=== PATIENT | male | born 1985 | race Caucasian/White ===

== ENCOUNTER 2024-05-08 21:13 | Inpatient (IN) | payer OTHER ==
[2024-05-08 22:27] VITALS: BMI 23.7
[2024-05-08] MEDS ORDERED: NALOXONE (NARCAN) HCL 4 MG/0.1 ML SPRAY NS PRN (22:43)
[2024-05-08] MEDS ORDERED: NICOTINE POLACRILEX 2 MG LOZENGE BC PRN (22:43)
[2024-05-08] MEDS ORDERED: BENZOCAINE/MENTHOL (CHLORASEPTIC ) LOZENGE MM PRN (22:43)
[2024-05-08] MEDS ORDERED: IBUPROFEN 600 MG TABLET (FP) PO PRN (22:43)
[2024-05-08] MEDS ORDERED: IBUPROFEN 400 MG TABLET (FP) PO PRN (22:43)
[2024-05-08] MEDS ORDERED: MAG HYDROX/AL HYDROX/SIMETH 30 ML UNIT-DOSE CUP PO PRN (22:43)
[2024-05-08] MEDS ORDERED: guaiFENesin 600 MG TABLET.ER (FP) PO PRN (22:43)
[2024-05-08] MEDS ORDERED: MAGNESIUM HYDROX 2400MG/30ML ORAL SUSPENSION 30 ML CUP PO PRN (22:43)
[2024-05-08] MEDS ORDERED: ACETAMINOPHEN 325 MG TABLET (FP) PO PRN (22:43)
[2024-05-08] MEDS ORDERED: DICYCLOMINE HCL 10 MG CAPSULE PO PRN (22:43)
[2024-05-08] MEDS ORDERED: POLYETHYLENE GLYCOL (HEALTHYLAX) 3350 17 GM PACKET PO PRN (22:43)
[2024-05-08] MEDS ORDERED: BENZONATATE 200 MG CAPSULE PO PRN (22:43)
[2024-05-08] MEDS ORDERED: BISMUTH SUBSALICYLATE 524 MG/30 ML PO PRN (22:43)
[2024-05-08] MEDS ORDERED: NALOXONE HCL 0.4 MG/ML VIAL IM PRN (22:43)
[2024-05-08] MEDS ORDERED: NICOTINE POLACRILEX 2 MG GUM BUC PRN (22:43)
[2024-05-08] MEDS ORDERED: LOPERAMIDE HCL 2 MG CAPSULE PO PRN (22:43)
[2024-05-08] MEDS: LORazepam 2 MG/ML SDV VIAL IM ONE (23:03)
[2024-05-08] MEDS ORDERED: levETIRAcetam 500 MG TABLET (FP) PO ONE (23:21)
[2024-05-08] MEDS ORDERED: diazePAM 5 MG TABLET ONE (23:21)
[2024-05-08] MEDS ORDERED: methaDONE HCL 10 MG TABLET (FOR DETOX USE ONLY) ONE (23:21)
[2024-05-08] MEDS: methaDONE HCL 10 MG TABLET (FOR DETOX USE ONLY) PO ONE (23:27)
[2024-05-08] MEDS: levETIRAcetam 500 MG TABLET (FP) PO SCH (23:29)
[2024-05-08] MEDS: diazePAM 5 MG TABLET PO SCH (23:29)
[2024-05-09] MEDS: PRENATAL VITAMINS W/ FOLIC ACID TABLET (FP) PO SCH (10:24)
[2024-05-09] MEDS: diazePAM 5 MG TABLET PO PRN (13:58)
[2024-05-09 14:38] LABS: HEMATOCRIT 41.2 % (35.4-49); HEMOGLOBIN 13.1 GM/dL (11.7-16.9); MCHC 31.9 g/dl (32.0-35.9); MEAN CELL VOLUME 78.5 fl (80-96); MEAN PLT VOLUME 9.2 fl (7.5-11.1); PLATELET COUNT 242 10^3/uL (134-434); RBC 5.25 M/mm3 (4.00-5.60); RDW 15.2 % (11.9-15.9); WHITE BLOOD COUNT 8.2 K/mm3 (4.0-10.0)
[2024-05-09 14:49] LABS: POTASSIUM 3.5 mmol/L (3.5-5.1)
[2024-05-09 15:12] LABS: ALBUMIN 3.7 g/dl (3.4-5.0); BLOOD UREA NITROGEN 8.9 mg/dL (7-18); CALCIUM 9.5 mg/dL (8.5-10.1)
[2024-05-09 15:15] LABS: CREATININE 0.7 mg/dL (0.55-1.3)
[2024-05-09 15:16] LABS: BILIRUBIN,TOTAL 0.4 mg/dL (0.2-1)
[2024-05-09 15:17] LABS: TOT PROT 7.1 g/dl (6.4-8.2)
[2024-05-09] MEDS: ONDANSETRON *ODT* 4 MG TABLET SL PRN (22:11)
[2024-05-09] MEDS: cloNIDine HCL 0.1 MG TABLET PO PRN (22:46)
[2024-05-09] MEDS: MELATONIN 5 MG TABLETS PO SCH (22:47)
[2024-05-09] MEDS: THIAMINE 100 MG TABLET PO SCH (22:48)
[2024-05-10] MEDS: diazePAM 5 MG TABLET PO SCH (05:43)
[2024-05-10] MEDS: cloNIDine HCL 0.1 MG TABLET PO SCH (09:14)
[2024-05-10] MEDS: methaDONE HCL 10 MG TABLET PO ONE (09:14)
[2024-05-10] MEDS ORDERED: methaDONE HCL 10 MG TABLET (FOR DETOX USE ONLY) PO ONE (10:00)
[2024-05-10] MEDS ORDERED: methaDONE HCL 10 MG TABLET PO PRN (10:12)
[2024-05-10] MEDS: METHOCARBAMOL 500 MG TABLET PO PRN (14:17)
[2024-05-11] MEDS: diazePAM 5 MG TABLET PO SCH (05:46)
[2024-05-11] MEDS: methaDONE 40 MG, methaDONE 10 MG PO ONE (09:49)
[2024-05-12] MEDS: diazePAM 5 MG TABLET PO ONE (06:16)
[2024-05-12] MEDS: methaDONE 40 MG, methaDONE 20 MG PO ONE (09:27)
[2024-05-12] MEDS ORDERED: methaDONE HCL 10 MG TABLET (FOR DETOX USE ONLY) PO ONE (10:00)
[2024-05-12] MEDS: cloNIDine HCL 0.1 MG TABLET PO PRN (22:32)
[2024-05-13] MEDS: methaDONE 40 MG, methaDONE 20 MG PO ONE (09:38)
[2024-05-13] MEDS ORDERED: methaDONE 40 MG, methaDONE 30 MG PO ONE (10:00)
[2024-05-13] MEDS ORDERED: methaDONE HCL 40 MG DISPERSABLE TABLET PO ONE (10:00)
[2024-05-14] MEDS: methaDONE 40 MG, methaDONE 30 MG PO ONE (09:58)
[2024-05-14] MEDS ORDERED: methaDONE HCL 40 MG DISPERSABLE TABLET PO ONE ×2 (10:00)
[2024-05-14] MEDS ORDERED: hydrOXYzine PAMOATE 25 MG CAPSULE (FP) PO PRN (12:51)
[2024-05-14] MEDS: SUVOREXANT 10 MG TABLET PO PRN (22:22)
[2024-05-15 08:42] VITALS: RESP 18
[2024-05-15] MEDS: methaDONE HCL 40 MG DISPERSABLE TABLET PO ONE (09:07)
[2024-05-15] MEDS ORDERED: methaDONE 80 MG, methaDONE 10 MG PO ONE (10:00)
[2024-05-15 12:30] VITALS: BP 145/93; PULSE 84; TEMP 97.7
== END 2024-05-15 12:46 | disposition other institution (70) | DRG 773 ==
LOC: YASAS 21:13 → Y6N 22:58
PROVIDERS: ADMIT Allergy & Immunology; ATTEND Surgery
PROC: HZ2ZZZZ Detoxification Services for Substance Abuse Treatment (ICD-10-PCS; principal; 2024-05-08)
DX: F11.23 Opioid dependence with withdrawal (principal); F13.20 Sedative, hypnotic or anxiolytic dependence, uncomplicated; F17.290 Nicotine dependence, other tobacco product, uncomplicated; F19.282 Other psychoactive substance dependence with psychoactive substance-induced sleep disorder; F19.280 Other psychoactive substance dependence with psychoactive substance-induced anxiety disorder; Z86.69 Personal history of other diseases of the nervous system and sense organs
CPT/HCPCS: 36415; 80053; 80305; 83036; 85027; 86780; 87811; 93005; 93010; Q0162

== ENCOUNTER 2024-05-15 12:39 | Inpatient (IN) | payer OTHER ==
[2024-05-15] MEDS ORDERED: LOPERAMIDE HCL 2 MG CAPSULE PO PRN (13:23)
[2024-05-15] MEDS ORDERED: MAG HYDROX/AL HYDROX/SIMETH 30 ML UNIT-DOSE CUP PO PRN (13:23)
[2024-05-15] MEDS ORDERED: MAGNESIUM HYDROX 2400MG/30ML ORAL SUSPENSION 30 ML CUP PO PRN (13:23)
[2024-05-15] MEDS ORDERED: POLYETHYLENE GLYCOL (HEALTHYLAX) 3350 17 GM PACKET PO PRN (13:23)
[2024-05-15] MEDS ORDERED: IBUPROFEN 400 MG TABLET (FP) PO PRN (13:23)
[2024-05-15] MEDS ORDERED: NALOXONE HCL 0.4 MG/ML VIAL IVPUSH PRN (13:23)
[2024-05-15] MEDS ORDERED: BENZOCAINE/MENTHOL (CHLORASEPTIC ) LOZENGE MM PRN (13:23)
[2024-05-15] MEDS ORDERED: ACETAMINOPHEN 325 MG TABLET (FP) PO PRN (13:23)
[2024-05-15] MEDS ORDERED: guaiFENesin 600 MG TABLET.ER (FP) PO PRN (13:23)
[2024-05-15] MEDS ORDERED: NALOXONE (NARCAN) HCL 4 MG/0.1 ML SPRAY NS PRN (13:23)
[2024-05-15] MEDS ORDERED: BENZONATATE 200 MG CAPSULE PO PRN (13:23)
[2024-05-15] MEDS: GABAPENTIN 300 MG CAPSULE PO SCH (15:55)
[2024-05-15] MEDS: THIAMINE 100 MG TABLET PO SCH (21:41)
[2024-05-15] MEDS: MELATONIN 5 MG TABLETS PO SCH (21:41)
[2024-05-15] MEDS: hydrOXYzine PAMOATE 25 MG CAPSULE (FP) PO PRN (21:42)
[2024-05-16] MEDS ORDERED: methaDONE HCL 40 MG DISPERSABLE TABLET PO SCH (06:00)
[2024-05-16] MEDS: PRENATAL VITAMINS W/ FOLIC ACID TABLET (FP) PO SCH (10:25)
[2024-05-16] MEDS: methaDONE HCL 40 MG DISPERSABLE TABLET PO SCH (10:27)
[2024-05-17] MEDS: METHOCARBAMOL 500 MG TABLET PO PRN (21:55)
[2024-05-19] MEDS: methaDONE HCL 40 MG DISPERSABLE TABLET PO SCH (07:07)
[2024-05-20] MEDS: NICOTINE POLACRILEX 2 MG GUM BC PRN (10:52)
[2024-05-21] MEDS: NICOTINE 21 MG/24 HOURS TOPICAL PATCH TD SCH (10:19)
[2024-05-24] MEDS: IBUPROFEN 600 MG TABLET (FP) PO PRN (10:37)
[2024-06-05 06:53] VITALS: TEMP 97.7
[2024-06-05] MEDS: NALOXONE (NYS OPIOID OVERDOSE PROGRAM) 4 MG/0.1 ML SPRAY NS PRN (09:49)
[2024-06-05 10:38] VITALS: BP 137/93; PULSE 101; RESP 20
== END 2024-06-05 10:10 | disposition home or self-care (01) | DRG 772 ==
LOC: YASAS 12:39 → Y5N 12:42
PROVIDERS: ADMIT Psychiatry & Neurology Pain Medicine; ATTEND Psychiatry & Neurology Pain Medicine
PROC: HZ42ZZZ Group Counseling for Substance Abuse Treatment, Cognitive-Behavioral (ICD-10-PCS; principal; 2024-05-15)
DX: F11.20 Opioid dependence, uncomplicated (principal); F13.20 Sedative, hypnotic or anxiolytic dependence, uncomplicated; F17.290 Nicotine dependence, other tobacco product, uncomplicated; F19.280 Other psychoactive substance dependence with psychoactive substance-induced anxiety disorder; F19.282 Other psychoactive substance dependence with psychoactive substance-induced sleep disorder

== ENCOUNTER 2024-08-12 14:23 | Inpatient (IN) | payer OTHER ==
[2024-08-12 14:45] VITALS: BMI 23.0
[2024-08-12] MEDS ORDERED: LORazepam 2 MG/ML SDV VIAL ONE (18:06)
[2024-08-12] MEDS ORDERED: POLYETHYLENE GLYCOL (HEALTHYLAX) 3350 17 GM PACKET PO PRN (18:22)
[2024-08-12] MEDS ORDERED: guaiFENesin 600 MG TABLET.ER (FP) PO PRN (18:22)
[2024-08-12] MEDS ORDERED: MAGNESIUM HYDROX 2400MG/30ML ORAL SUSPENSION 30 ML CUP PO PRN (18:22)
[2024-08-12] MEDS ORDERED: LOPERAMIDE HCL 2 MG CAPSULE PO PRN (18:22)
[2024-08-12] MEDS ORDERED: MAG HYDROX/AL HYDROX/SIMETH 30 ML UNIT-DOSE CUP PO PRN (18:22)
[2024-08-12] MEDS ORDERED: NALOXONE (NARCAN) HCL 4 MG/0.1 ML SPRAY NS PRN (18:22)
[2024-08-12] MEDS ORDERED: BISMUTH SUBSALICYLATE 524 MG/30 ML PO PRN (18:22)
[2024-08-12] MEDS ORDERED: ACETAMINOPHEN 325 MG TABLET (FP) PO PRN (18:22)
[2024-08-12] MEDS ORDERED: BENZOCAINE/MENTHOL (CHLORASEPTIC ) LOZENGE MM PRN (18:22)
[2024-08-12] MEDS: LORazepam 2 MG/ML SDV VIAL IM ONE (18:22)
[2024-08-12] MEDS ORDERED: IBUPROFEN 600 MG TABLET (FP) PO PRN (18:22)
[2024-08-12] MEDS ORDERED: BENZONATATE 200 MG CAPSULE PO PRN (18:22)
[2024-08-12] MEDS ORDERED: IBUPROFEN 400 MG TABLET (FP) PO PRN (18:22)
[2024-08-12] MEDS ORDERED: TRIMETHOBENZAMIDE HCL 200MG/2ML INJ IM ONE (18:38)
[2024-08-12] MEDS ORDERED: levETIRAcetam 500 MG TABLET (FP) PO ONE (18:38)
[2024-08-12] MEDS: levETIRAcetam 500 MG TABLET (FP) PO ONE (18:47)
[2024-08-12] MEDS: TRIMETHOBENZAMIDE HCL 200MG/2ML INJ IM ONE (18:47)
[2024-08-12] MEDS ORDERED: NICOTINE POLACRILEX 2 MG GUM BUC PRN (19:04)
[2024-08-12] MEDS ORDERED: methaDONE HCL 10 MG TABLET PO ONE (20:00)
[2024-08-12] MEDS: METHOCARBAMOL 500 MG TABLET PO PRN (22:14)
[2024-08-12] MEDS: diazePAM 5 MG TABLET PO SCH (22:14)
[2024-08-12] MEDS: MELATONIN 5 MG TABLETS PO SCH (22:14)
[2024-08-12] MEDS: hydrOXYzine PAMOATE 25 MG CAPSULE (FP) PO PRN (22:14)
[2024-08-12] MEDS: THIAMINE 100 MG TABLET PO SCH (22:14)
[2024-08-13] MEDS: ONDANSETRON *ODT* 4 MG TABLET SL PRN (05:41)
[2024-08-13] MEDS: diazePAM 5 MG TABLET PO PRN (07:37)
[2024-08-13 08:31] LABS: HEMATOCRIT 41.8 % (35.4-49); HEMOGLOBIN 13.8 GM/dL (11.7-16.9); MCH 25.3 pg (25.7-33.7); MEAN CELL VOLUME 76.5 fl (80-96); PLATELET COUNT 338 10^3/uL (134-434); RBC 5.46 M/mm3 (4.00-5.60); RDW 14.5 % (11.9-15.9); WHITE BLOOD COUNT 12.7 K/mm3 (4.0-10.0)
[2024-08-13 08:33] LABS: CHLORIDE 104 mmol/L (98-107); POTASSIUM 3.6 mmol/L (3.5-5.1); SODIUM 141 mmol/L (136-145)
[2024-08-13 08:36] LABS: CALCIUM 9.9 mg/dL (8.5-10.1)
[2024-08-13 08:37] LABS: ALBUMIN 4.3 g/dl (3.4-5.0); ANION GAP 9 mmol/L (4-13); BLOOD UREA NITROGEN 18.9 mg/dL (7-18); CO2 28 mmol/L (21-32); GLUCOSE,RANDOM 127 mg/dL (74-106)
[2024-08-13 08:40] LABS: CREATININE 0.7 mg/dL (0.55-1.3); SGOT/AST 34 U/L (15-37); SGPT/ALT 21 U/L (13-61)
[2024-08-13 08:41] LABS: BILIRUBIN,TOTAL 0.7 mg/dL (0.2-1); TOT PROT 7.8 g/dl (6.4-8.2)
[2024-08-13 08:43] LABS: ALK PHOS 89 U/L (45-117)
[2024-08-13] MEDS: PRENATAL VITAMINS W/ FOLIC ACID TABLET (FP) PO SCH (10:34)
[2024-08-13] MEDS: NICOTINE 14 MG/24 HOURS TOPICAL PATCH TD SCH (10:34)
[2024-08-13] MEDS: levETIRAcetam 500 MG TABLET (FP) PO SCH (10:35)
[2024-08-13] MEDS: methaDONE HCL 10 MG TABLET PO ONE (11:05)
[2024-08-13] MEDS: cloNIDine HCL 0.1 MG TABLET PO SCH (13:07)
[2024-08-13] MEDS: LORazepam 2 MG/ML SDV VIAL IM ONE (17:14)
[2024-08-13] MEDS: GABAPENTIN 300 MG CAPSULE PO ONE (17:15)
[2024-08-13] MEDS: methaDONE HCL 10 MG TABLET PO PRN (17:51)
[2024-08-13] MEDS: GABAPENTIN 300 MG CAPSULE PO SCH (21:35)
[2024-08-14] MEDS: diazePAM 5 MG TABLET PO SCH (05:40)
[2024-08-14] MEDS: methaDONE 40 MG, methaDONE 10 MG PO ONE (09:40)
[2024-08-15] MEDS: diazePAM 5 MG TABLET PO SCH (05:40)
[2024-08-15] MEDS: methaDONE 40 MG, methaDONE 20 MG PO ONE (09:54)
[2024-08-15] MEDS: DICYCLOMINE HCL 10 MG CAPSULE PO PRN (09:57)
[2024-08-15 10:35] LABS: BASO % 0.7 % (0-2.0); EOS % 0.8 % (0-4.5); HEMATOCRIT 43.3 % (35.4-49); HEMOGLOBIN 13.8 GM/dL (11.7-16.9); LYMPH % 21.6 % (8-40); MCHC 31.8 g/dl (32.0-35.9); MEAN CELL VOLUME 78.4 fl (80-96); MONO % 9.1 % (3.8-10.2); NEUT % 67.8 % (42.8-82.8); PLATELET COUNT 275 10^3/uL (134-434); RBC 5.52 M/mm3 (4.00-5.60); RDW 14.6 % (11.9-15.9); WHITE BLOOD COUNT 8.3 K/mm3 (4.0-10.0)
[2024-08-15] MEDS: cloNIDine HCL 0.1 MG TABLET PO PRN (21:47)
[2024-08-16] MEDS: diazePAM 5 MG TABLET PO ONE (05:22)
[2024-08-16] MEDS: methaDONE 40 MG, methaDONE 30 MG PO ONE (09:43)
[2024-08-16] MEDS: cloNIDine HCL 0.1 MG TABLET PO ONE (19:53)
[2024-08-17] MEDS: methaDONE HCL 40 MG DISPERSABLE TABLET PO ONE (09:11)
[2024-08-18] MEDS: methaDONE 80 MG, methaDONE 10 MG PO ONE (09:45)
[2024-08-18] MEDS: NALOXONE (NYS OPIOID OVERDOSE PROGRAM) 4 MG/0.1 ML SPRAY NS SCH (09:58)
[2024-08-18 10:00] VITALS: BP 137/86; PULSE 77; RESP 16; TEMP 98.9
[2024-08-19] MEDS ORDERED: methaDONE 80 MG, methaDONE 10 MG PO SCH (06:00)
[2024-08-19] MEDS ORDERED: methaDONE HCL 10 MG TABLET PO SCH (06:00)
== END 2024-08-18 12:32 | disposition other institution (70) | DRG 773 ==
LOC: YASAS 14:23 → Y3N 18:14
PROVIDERS: ADMIT Allergy & Immunology; ATTEND Surgery
PROC: HZ2ZZZZ Detoxification Services for Substance Abuse Treatment (ICD-10-PCS; principal; 2024-08-12)
DX: F13.230 Sedative, hypnotic or anxiolytic dependence with withdrawal, uncomplicated (principal); F11.20 Opioid dependence, uncomplicated; F19.24 Other psychoactive substance dependence with psychoactive substance-induced mood disorder; F41.9 Anxiety disorder, unspecified; G47.00 Insomnia, unspecified; R56.9 Unspecified convulsions
CPT/HCPCS: 36415; 80053; 80305; 80307; 82962; 85025; 85027; 86780; 87811; 93005; 93010; Q0162

== ENCOUNTER 2024-10-19 08:57 | Inpatient (IN) | payer OTHER ==
[2024-10-19 09:18] VITALS: BMI 23.3
[2024-10-19] MEDS ORDERED: chlordiazePOXIDE HCL 25 MG CAPSULE PO PRN (09:29)
[2024-10-19] MEDS ORDERED: NICOTINE POLACRILEX 2 MG LOZENGE BC PRN (09:35)
[2024-10-19] MEDS ORDERED: NALOXONE (NARCAN) HCL 4 MG/0.1 ML SPRAY NS PRN (09:35)
[2024-10-19] MEDS ORDERED: ACETAMINOPHEN 325 MG TABLET (FP) PO PRN (09:35)
[2024-10-19] MEDS ORDERED: BENZOCAINE/MENTHOL (CHLORASEPTIC ) LOZENGE MM PRN (09:35)
[2024-10-19] MEDS ORDERED: guaiFENesin 600 MG TABLET.ER (FP) PO PRN (09:35)
[2024-10-19] MEDS ORDERED: IBUPROFEN 600 MG TABLET (FP) PO PRN (09:35)
[2024-10-19] MEDS ORDERED: DICYCLOMINE HCL 10 MG CAPSULE PO PRN (09:35)
[2024-10-19] MEDS ORDERED: IBUPROFEN 400 MG TABLET (FP) PO PRN (09:35)
[2024-10-19] MEDS ORDERED: LOPERAMIDE HCL 2 MG CAPSULE PO PRN (09:35)
[2024-10-19] MEDS ORDERED: BISMUTH SUBSALICYLATE 262 MG/15 ML BTL PO PRN (09:35)
[2024-10-19] MEDS ORDERED: ONDANSETRON *ODT* 4 MG TABLET SL PRN (09:35)
[2024-10-19] MEDS ORDERED: BENZONATATE 200 MG CAPSULE PO PRN (09:35)
[2024-10-19] MEDS ORDERED: MAGNESIUM HYDROX 2400MG/30ML ORAL SUSPENSION 30 ML CUP PO PRN (09:35)
[2024-10-19] MEDS ORDERED: POLYETHYLENE GLYCOL (HEALTHYLAX) 3350 17 GM PACKET PO PRN (09:35)
[2024-10-19] MEDS ORDERED: MAG HYDROX/AL HYDROX/SIMETH 30 ML UNIT-DOSE CUP PO PRN (09:35)
[2024-10-19] MEDS ORDERED: TRIMETHOBENZAMIDE HCL 200MG/2ML INJ IM ONE (09:56)
[2024-10-19] MEDS ORDERED: LORazepam 2 MG/ML SDV VIAL ONE (09:56)
[2024-10-19] MEDS: LORazepam 2 MG/ML SDV VIAL IM ONE (10:04)
[2024-10-19] MEDS: TRIMETHOBENZAMIDE HCL 200MG/2ML INJ IM ONE (10:05)
[2024-10-19] MEDS ORDERED: levETIRAcetam 500 MG TABLET (FP) PO ONE (10:53)
[2024-10-19] MEDS ORDERED: chlordiazePOXIDE HCL 25 MG CAPSULE ONE (10:53)
[2024-10-19] MEDS ORDERED: PRENATAL VITAMINS W/ FOLIC ACID TABLET (FP) PO ONE (10:54)
[2024-10-19] MEDS: levETIRAcetam 500 MG TABLET (FP) PO SCH (10:54)
[2024-10-19] MEDS: chlordiazePOXIDE HCL 25 MG CAPSULE PO SCH (10:55)
[2024-10-19] MEDS: PRENATAL VITAMINS W/ FOLIC ACID TABLET (FP) PO SCH (10:55)
[2024-10-19] MEDS: methaDONE HCL 10 MG TABLET PO ONE (11:52)
[2024-10-19] MEDS: MELATONIN 5 MG TABLETS PO SCH (22:23)
[2024-10-19] MEDS: THIAMINE 100 MG TABLET PO SCH (22:23)
[2024-10-19] MEDS: cloNIDine HCL 0.1 MG TABLET PO PRN (22:24)
[2024-10-20] MEDS: METHOCARBAMOL 500 MG TABLET PO PRN (01:08)
[2024-10-20] MEDS ORDERED: methaDONE HCL 40 MG DISPERSABLE TABLET PO ONE (10:00)
[2024-10-20 10:10] LABS: POTASSIUM 3.9 mmol/L (3.5-5.1)
[2024-10-20 10:15] LABS: HEMATOCRIT 42.1 % (35.4-49); HEMOGLOBIN 14.1 GM/dL (11.7-16.9); MCHC 33.6 g/dl (32.0-35.9); MEAN CELL VOLUME 77.4 fl (80-96); MEAN PLT VOLUME 7.9 fl (7.5-11.1); PLATELET COUNT 331 10^3/uL (134-434); RBC 5.43 M/mm3 (4.00-5.60); RDW 14.4 % (11.9-15.9)
[2024-10-20 10:19] LABS: BILIRUBIN,TOTAL 0.5 mg/dL (0.2-1); TOT PROT 7.8 g/dl (6.4-8.2)
[2024-10-20 10:57] LABS: CALCIUM 9.7 mg/dL (8.5-10.1)
[2024-10-20 10:58] LABS: ALBUMIN 4.2 g/dl (3.4-5.0); BLOOD UREA NITROGEN 17.2 mg/dL (7-18)
[2024-10-20 11:03] LABS: CREATININE 0.7 mg/dL (0.55-1.3)
[2024-10-20] MEDS: QUEtiapine FUMARATE 50 MG TABLET PO SCH (22:11)
[2024-10-21] MEDS: chlordiazePOXIDE HCL 25 MG CAPSULE PO SCH (05:55)
[2024-10-21] MEDS: methaDONE HCL 40 MG DISPERSABLE TABLET PO ONE (09:52)
[2024-10-21 09:59] LABS: BASO % 0.6 % (0-2.0); HEMATOCRIT 42.5 % (35.4-49); HEMOGLOBIN 13.6 GM/dL (11.7-16.9); LYMPH % 36.5 % (8-40); MCH 25.5 pg (25.7-33.7); MCHC 31.9 g/dl (32.0-35.9); MEAN CELL VOLUME 80.1 fl (80-96); MEAN PLT VOLUME 7.9 fl (7.5-11.1); MONO % 6.3 % (3.8-10.2); NEUT % 55.6 % (42.8-82.8); PLATELET COUNT 311 10^3/uL (134-434); RBC 5.31 M/mm3 (4.00-5.60); RDW 14.7 % (11.9-15.9)
[2024-10-21] MEDS: GABAPENTIN 100 MG CAPSULE PO SCH (13:28)
[2024-10-21] MEDS: NICOTINE POLACRILEX 2 MG GUM BUC PRN (13:28)
[2024-10-21] MEDS ORDERED: GABAPENTIN 300 MG CAPSULE PO SCH (14:00)
[2024-10-21] MEDS ORDERED: levETIRAcetam 250 MG TABLET PO ONE (22:04)
[2024-10-22] MEDS ORDERED: chlordiazePOXIDE HCL 10 MG CAPSULE PO PRN
[2024-10-22] MEDS: chlordiazePOXIDE HCL 10 MG CAPSULE PO SCH (06:00)
[2024-10-22] MEDS ORDERED: levETIRAcetam 250 MG TABLET PO ONE (09:27)
[2024-10-22] MEDS ORDERED: methaDONE HCL 40 MG DISPERSABLE TABLET PO ONE (10:00)
[2024-10-23] MEDS: chlordiazePOXIDE HCL 10 MG CAPSULE PO SCH (05:47)
[2024-10-23] MEDS: methaDONE 40 MG, methaDONE 10 MG PO ONE (09:07)
[2024-10-23] MEDS ORDERED: methaDONE HCL 40 MG DISPERSABLE TABLET PO ONE (10:00)
[2024-10-23 21:22] VITALS: RESP 16
[2024-10-24] MEDS: chlordiazePOXIDE HCL 10 MG CAPSULE PO ONE (05:58)
[2024-10-24 09:04] VITALS: BP 134/94; PULSE 86; TEMP 97.7
[2024-10-24] MEDS ORDERED: methaDONE HCL 40 MG DISPERSABLE TABLET PO ONE (10:00)
== END 2024-10-24 12:05 | disposition other institution (70) | DRG 773 ==
LOC: YASAS 08:57 → Y6N 11:09
PROVIDERS: ADMIT Allergy & Immunology; ATTEND Family Medicine Addiction Medicine
PROC: HZ2ZZZZ Detoxification Services for Substance Abuse Treatment (ICD-10-PCS; principal; 2024-10-19)
DX: F10.230 Alcohol dependence with withdrawal, uncomplicated (principal); F13.230 Sedative, hypnotic or anxiolytic dependence with withdrawal, uncomplicated; F11.20 Opioid dependence, uncomplicated; F17.210 Nicotine dependence, cigarettes, uncomplicated; F43.10 Post-traumatic stress disorder, unspecified
CPT/HCPCS: 36415; 80053; 80305; 80307; 85025; 85027; 86780; 87811; 93005; 93010

== ENCOUNTER 2024-10-24 12:00 | Inpatient (IN) | payer OTHER ==
[2024-10-24] MEDS ORDERED: guaiFENesin 600 MG TABLET.ER (FP) PO PRN (15:45)
[2024-10-24] MEDS ORDERED: METHOCARBAMOL 500 MG TABLET PO PRN (15:45)
[2024-10-24] MEDS ORDERED: BENZOCAINE/MENTHOL (CHLORASEPTIC ) LOZENGE MM PRN (15:45)
[2024-10-24] MEDS ORDERED: NICOTINE POLACRILEX 4 MG GUM BUC PRN (15:45)
[2024-10-24] MEDS ORDERED: NICOTINE POLACRILEX 4 MG LOZENGE BC PRN (15:45)
[2024-10-24] MEDS ORDERED: MAGNESIUM HYDROX 2400MG/30ML ORAL SUSPENSION 30 ML CUP PO PRN (15:45)
[2024-10-24] MEDS ORDERED: POLYETHYLENE GLYCOL (HEALTHYLAX) 3350 17 GM PACKET PO PRN (15:45)
[2024-10-24] MEDS ORDERED: BENZONATATE 200 MG CAPSULE PO PRN (15:45)
[2024-10-24] MEDS ORDERED: IBUPROFEN 600 MG TABLET (FP) PO PRN (15:45)
[2024-10-24] MEDS ORDERED: IBUPROFEN 400 MG TABLET (FP) PO PRN (15:45)
[2024-10-24] MEDS ORDERED: LOPERAMIDE HCL 2 MG CAPSULE PO PRN (15:45)
[2024-10-24] MEDS ORDERED: NALOXONE (NARCAN) HCL 4 MG/0.1 ML SPRAY NS PRN (15:45)
[2024-10-24] MEDS ORDERED: NALOXONE HCL 0.4 MG/ML VIAL IVPUSH PRN (15:45)
[2024-10-24] MEDS ORDERED: MAG HYDROX/AL HYDROX/SIMETH 30 ML UNIT-DOSE CUP PO PRN (15:45)
[2024-10-24] MEDS: THIAMINE 100 MG TABLET PO SCH (21:26)
[2024-10-24] MEDS: hydrOXYzine PAMOATE 25 MG CAPSULE (FP) PO PRN (21:28)
[2024-10-24] MEDS: GABAPENTIN 100 MG CAPSULE PO SCH (21:28)
[2024-10-24] MEDS: levETIRAcetam 500 MG TABLET (FP) PO SCH (21:28)
[2024-10-24] MEDS: QUEtiapine FUMARATE 50 MG TABLET PO SCH (21:28)
[2024-10-24] MEDS: MELATONIN 5 MG TABLETS PO SCH (21:28)
[2024-10-25] MEDS ORDERED: methaDONE HCL 10 MG TABLET PO SCH (08:30)
[2024-10-25] MEDS: PRENATAL VITAMINS W/ FOLIC ACID TABLET (FP) PO SCH (09:57)
[2024-10-25] MEDS: NICOTINE 14 MG/24 HOURS TOPICAL PATCH TD SCH (09:57)
[2024-10-28] MEDS ORDERED: QUEtiapine FUMARATE 25 MG TABLET ONE (18:49)
[2024-10-30] MEDS: DOCUSATE SODIUM 100 MG CAPSULE (FP) PO SCH (12:23)
[2024-10-30] MEDS: GABAPENTIN 300 MG CAPSULE PO SCH (13:10)
[2024-10-30] MEDS: MELATONIN 5 MG TABLETS PO SCH (21:53)
[2024-10-31] MEDS ORDERED: methaDONE HCL 40 MG DISPERSABLE TABLET PO SCH (06:00)
[2024-10-31] MEDS: methaDONE 40 MG, methaDONE 30 MG PO SCH (06:09)
[2024-10-31] MEDS: SELENIUM SULFIDE 2.25% 180 ML SHAMPOO TP SCH (14:30)
[2024-11-03] MEDS: methaDONE HCL 40 MG DISPERSABLE TABLET PO SCH (06:19)
[2024-11-05] MEDS: methaDONE 80 MG, methaDONE 10 MG PO SCH (06:22)
[2024-11-06] MEDS ORDERED: CALMINE 3% AND PRAMOXINE 1% 118 ML BOTTLE TP PRN (17:04)
[2024-11-08] MEDS: SELENIUM SULFIDE 2.25% 180 ML SHAMPOO TP SCH (15:40)
[2024-11-09] MEDS: CALAMINE 8% TOPICAL LOTION 177 ML BOTTLE TP PRN (13:32)
[2024-11-12] MEDS ORDERED: methaDONE HCL 10 MG TABLET PO SCH (06:00)
[2024-11-12] MEDS ORDERED: methaDONE 80 MG, methaDONE 10 MG PO SCH (06:00)
[2024-11-13] MEDS: ACETAMINOPHEN 325 MG TABLET (FP) PO PRN (09:55)
[2024-11-15] MEDS ORDERED: levETIRAcetam 250 MG TABLET PO ONE (09:24)
[2024-11-18 06:36] VITALS: PULSE 73; RESP 16
[2024-11-19 07:37] VITALS: BP 127/86; TEMP 97.7
== END 2024-11-19 09:42 | disposition home or self-care (01) | DRG 772 ==
LOC: YASAS 12:00 → Y3E 12:02 → Y3NR 11-13 19:00 → Y3E 11-13 19:01
PROVIDERS: ADMIT Psychiatry & Neurology Pain Medicine; ATTEND Psychiatry & Neurology Pain Medicine
PROC: HZ42ZZZ Group Counseling for Substance Abuse Treatment, Cognitive-Behavioral (ICD-10-PCS; principal; 2024-10-24)
DX: F11.20 Opioid dependence, uncomplicated (principal); F13.20 Sedative, hypnotic or anxiolytic dependence, uncomplicated; F17.210 Nicotine dependence, cigarettes, uncomplicated; F19.282 Other psychoactive substance dependence with psychoactive substance-induced sleep disorder; F19.24 Other psychoactive substance dependence with psychoactive substance-induced mood disorder; G47.00 Insomnia, unspecified; K59.00 Constipation, unspecified; L85.3 Xerosis cutis; L21.0 Seborrhea capitis; Z86.69 Personal history of other diseases of the nervous system and sense organs

== ENCOUNTER 2024-12-14 17:12 | Inpatient (IN) | payer OTHER ==
[2024-12-14] MEDS ORDERED: LORazepam 2 MG/ML SDV VIAL ONE (17:18)
[2024-12-14] MEDS ORDERED: levETIRAcetam 500 MG TABLET (FP) PO ONE (17:19)
[2024-12-14] MEDS: LORazepam 2 MG/ML SDV VIAL IM ONE (17:24)
[2024-12-14] MEDS: levETIRAcetam 500 MG TABLET (FP) PO ONE (17:24)
[2024-12-14 17:30] VITALS: BMI 24.4
[2024-12-14] MEDS ORDERED: NALOXONE (NARCAN) HCL 4 MG/0.1 ML SPRAY NS PRN (18:11)
[2024-12-14] MEDS ORDERED: MAGNESIUM HYDROX 2400MG/30ML ORAL SUSPENSION 30 ML CUP PO PRN (18:11)
[2024-12-14] MEDS ORDERED: guaiFENesin 600 MG TABLET.ER (FP) PO PRN (18:11)
[2024-12-14] MEDS ORDERED: ONDANSETRON *ODT* 4 MG TABLET SL PRN (18:11)
[2024-12-14] MEDS ORDERED: MAG HYDROX/AL HYDROX/SIMETH 30 ML UNIT-DOSE CUP PO PRN (18:11)
[2024-12-14] MEDS ORDERED: POLYETHYLENE GLYCOL (HEALTHYLAX) 3350 17 GM PACKET PO PRN (18:11)
[2024-12-14] MEDS ORDERED: ACETAMINOPHEN 325 MG TABLET (FP) PO PRN (18:11)
[2024-12-14] MEDS ORDERED: IBUPROFEN 600 MG TABLET (FP) PO PRN (18:11)
[2024-12-14] MEDS ORDERED: IBUPROFEN 400 MG TABLET (FP) PO PRN (18:11)
[2024-12-14] MEDS ORDERED: BISMUTH SUBSALICYLATE 524 MG/30 ML PO PRN (18:11)
[2024-12-14] MEDS ORDERED: DICYCLOMINE HCL 10 MG CAPSULE PO PRN (18:11)
[2024-12-14] MEDS ORDERED: BENZOCAINE/MENTHOL (CHLORASEPTIC ) LOZENGE MM PRN (18:11)
[2024-12-14] MEDS ORDERED: BENZONATATE 200 MG CAPSULE PO PRN (18:11)
[2024-12-14] MEDS ORDERED: hydrOXYzine PAMOATE 25 MG CAPSULE (FP) PO PRN (18:11)
[2024-12-14] MEDS: methaDONE HCL 10 MG TABLET PO ONE (19:19)
[2024-12-14] MEDS: MELATONIN 5 MG TABLETS PO SCH (22:14)
[2024-12-14] MEDS: METHOCARBAMOL 500 MG TABLET PO PRN (22:15)
[2024-12-14] MEDS: THIAMINE 100 MG TABLET PO SCH (22:16)
[2024-12-14] MEDS: diazePAM 5 MG TABLET PO SCH (22:54)
[2024-12-15] MEDS: LOPERAMIDE HCL 2 MG CAPSULE PO PRN (03:53)
[2024-12-15] MEDS: methaDONE HCL 10 MG TABLET PO ONE (10:00)
[2024-12-15] MEDS: methaDONE 40 MG, methaDONE 10 MG PO ONE ×2 (10:00→11:25)
[2024-12-15] MEDS: PRENATAL VITAMINS W/ FOLIC ACID TABLET (FP) PO SCH (10:02)
[2024-12-15] MEDS: levETIRAcetam 500 MG TABLET (FP) PO SCH (10:02)
[2024-12-15 10:44] LABS: CHLORIDE 105 mmol/L (98-107); POTASSIUM 4.3 mmol/L (3.5-5.1); SODIUM 140 mmol/L (136-145)
[2024-12-15] MEDS: cloNIDine HCL 0.1 MG TABLET PO SCH (10:50)
[2024-12-15 10:52] LABS: HEMATOCRIT 42.5 % (40.1-51.0); HEMOGLOBIN 13.2 g/dL (13.7-17.5); MCHC 31.1 g/dl (32.3-36.5); MEAN CELL VOLUME 80.5 fl (79.0-92.2); PLATELET COUNT 402 x10^3/uL (163-337); RDW 13.5 % (12.0-15.6)
[2024-12-15 10:55] LABS: CALCIUM 9.8 mg/dL (8.5-10.1)
[2024-12-15 10:56] LABS: ALBUMIN 3.7 g/dl (3.4-5.0); ANION GAP 8 mmol/L (4-13); BLOOD UREA NITROGEN 12.3 mg/dL (7-18); CO2 27 mmol/L (21-32); GLUCOSE,RANDOM 92 mg/dL (74-106)
[2024-12-15 10:59] LABS: CREATININE 0.7 mg/dL (0.55-1.3); SGOT/AST 22 U/L (15-37); SGPT/ALT 20 U/L (13-61)
[2024-12-15 11:00] LABS: BILIRUBIN,TOTAL 0.4 mg/dL (0.2-1)
[2024-12-15 11:01] LABS: TOT PROT 7.1 g/dl (6.4-8.2)
[2024-12-15 11:02] LABS: ALK PHOS 83 U/L (45-117)
[2024-12-15] MEDS ORDERED: methaDONE HCL 10 MG TABLET PO ONE (11:03)
[2024-12-15] MEDS ORDERED: methaDONE HCL 10 MG TABLET PO PRN (11:30)
[2024-12-15] MEDS: diazePAM 5 MG TABLET PO PRN (13:26)
[2024-12-15] MEDS: QUEtiapine FUMARATE 100 MG TABLET (FP) PO SCH (22:08)
[2024-12-16] MEDS: diazePAM 5 MG TABLET PO SCH (05:44)
[2024-12-16] MEDS: methaDONE 40 MG, methaDONE 20 MG PO ONE (09:29)
[2024-12-16] MEDS ORDERED: methaDONE 40 MG, methaDONE 10 MG PO ONE (10:00)
[2024-12-17] MEDS ORDERED: cloNIDine HCL 0.1 MG TABLET PO PRN
[2024-12-17] MEDS: diazePAM 5 MG TABLET PO SCH (05:49)
[2024-12-17] MEDS: methaDONE 40 MG, methaDONE 30 MG PO ONE (09:22)
[2024-12-17] MEDS ORDERED: methaDONE 40 MG, methaDONE 20 MG PO ONE (10:00)
[2024-12-17] MEDS: GABAPENTIN 300 MG CAPSULE PO SCH (14:53)
[2024-12-17] MEDS: DOCUSATE SODIUM 100 MG CAPSULE (FP) PO SCH (22:22)
[2024-12-18] MEDS: diazePAM 5 MG TABLET PO ONE (05:44)
[2024-12-18 09:23] VITALS: BP 123/92; PULSE 85; RESP 16; TEMP 98.9
[2024-12-18] MEDS: methaDONE HCL 40 MG DISPERSABLE TABLET PO ONE (09:35)
[2024-12-18] MEDS ORDERED: methaDONE 40 MG, methaDONE 30 MG PO ONE (10:00)
[2024-12-19] MEDS ORDERED: methaDONE HCL 40 MG DISPERSABLE TABLET PO ONE ×3 (10:00→10:10)
[2024-12-19] MEDS ORDERED: methaDONE 80 MG, methaDONE 10 MG PO ONE ×2 (10:10)
[2024-12-20] MEDS ORDERED: methaDONE 80 MG, methaDONE 10 MG PO ONE (10:00)
== END 2024-12-18 12:32 | disposition other institution (70) | DRG 773 ==
LOC: YASAS 17:12 → Y6N 18:29
PROVIDERS: ADMIT Allergy & Immunology; ATTEND Allergy & Immunology
PROC: HZ2ZZZZ Detoxification Services for Substance Abuse Treatment (ICD-10-PCS; principal; 2024-12-14)
DX: F11.23 Opioid dependence with withdrawal (principal); F13.20 Sedative, hypnotic or anxiolytic dependence, uncomplicated; F17.210 Nicotine dependence, cigarettes, uncomplicated; F19.280 Other psychoactive substance dependence with psychoactive substance-induced anxiety disorder; F19.282 Other psychoactive substance dependence with psychoactive substance-induced sleep disorder; F43.10 Post-traumatic stress disorder, unspecified; G47.00 Insomnia, unspecified; G40.909 Epilepsy, unspecified, not intractable, without status epilepticus
CPT/HCPCS: 36415; 80053; 80305; 80307; 85027; 86780; 87811; 93005; 93010

== ENCOUNTER 2025-04-05 22:33 | Inpatient (IN) | payer OTHER ==
[2025-04-05 22:56] VITALS: BMI 24.8
[2025-04-06] MEDS ORDERED: IBUPROFEN 600 MG TABLET (FP) PO PRN (00:19)
[2025-04-06] MEDS ORDERED: BENZOCAINE/MENTHOL (CHLORASEPTIC ) LOZENGE MM PRN (00:19)
[2025-04-06] MEDS ORDERED: DICYCLOMINE HCL 10 MG CAPSULE PO PRN (00:19)
[2025-04-06] MEDS ORDERED: BISMUTH SUBSALICYLATE 524 MG/30 ML PO PRN (00:19)
[2025-04-06] MEDS ORDERED: POLYETHYLENE GLYCOL (HEALTHYLAX) 3350 17 GM PACKET PO PRN (00:19)
[2025-04-06] MEDS ORDERED: BENZONATATE 200 MG CAPSULE PO PRN (00:19)
[2025-04-06] MEDS ORDERED: NALOXONE (NARCAN) HCL 4 MG/0.1 ML SPRAY NS PRN (00:19)
[2025-04-06] MEDS ORDERED: MAG HYDROX/AL HYDROX/SIMETH 30 ML UNIT-DOSE CUP PO PRN (00:19)
[2025-04-06] MEDS ORDERED: IBUPROFEN 400 MG TABLET (FP) PO PRN (00:19)
[2025-04-06] MEDS ORDERED: guaiFENesin 600 MG TABLET.ER (FP) PO PRN (00:19)
[2025-04-06] MEDS ORDERED: hydrOXYzine PAMOATE 25 MG CAPSULE (FP) PO PRN (00:19)
[2025-04-06] MEDS ORDERED: ONDANSETRON *ODT* 4 MG TABLET SL PRN (00:19)
[2025-04-06] MEDS ORDERED: MAGNESIUM HYDROX 2400MG/30ML ORAL SUSPENSION 30 ML CUP PO PRN (00:19)
[2025-04-06] MEDS ORDERED: ACETAMINOPHEN 325 MG TABLET (FP) PO PRN (00:19)
[2025-04-06] MEDS: LOPERAMIDE HCL 2 MG CAPSULE PO PRN (03:03)
[2025-04-06] MEDS ORDERED: DOCUSATE SODIUM 100 MG CAPSULE (FP) PO PRN (09:19)
[2025-04-06] MEDS: levETIRAcetam 500 MG TABLET (FP) PO SCH (10:10)
[2025-04-06] MEDS: PRENATAL VITAMINS W/ FOLIC ACID TABLET (FP) PO SCH (10:11)
[2025-04-06] MEDS: METHOCARBAMOL 500 MG TABLET PO PRN (11:30)
[2025-04-06] MEDS: MELATONIN 5 MG TABLETS PO SCH (21:57)
[2025-04-06] MEDS: QUEtiapine FUMARATE 100 MG TABLET (FP) PO SCH (21:57)
[2025-04-06] MEDS: THIAMINE 100 MG TABLET PO SCH (21:57)
[2025-04-07 09:16] LABS: MCHC 30.8 g/dl (32.3-36.5); MEAN CELL VOLUME 81.6 fl (79.0-92.2); MEAN PLT VOLUME 10.6 fl (9.4-12.4); RDW 14.5 % (12.0-15.6)
[2025-04-07 09:28] LABS: GLUCOSE,RANDOM 88.0 mg/dL (74-106); TOT PROT 7.2 g/dl (6.4-8.2)
[2025-04-07 09:29] LABS: CO2 25.0 mmol/L (21-32)
[2025-04-07 09:31] LABS: ALK PHOS 73.0 U/L (40-150)
[2025-04-07 09:34] LABS: CREATININE 0.7 mg/dL (0.55-1.3); SGOT/AST 17.0 U/L (5-34); SGPT/ALT 15.0 U/L (0-55)
[2025-04-09 06:42] VITALS: BP 135/84; PULSE 89; RESP 16; TEMP 97.6
[2025-04-09 11:30] LABS: ABSOLUTE IMMATURE GRANULOCYTES 0.01 x10^3/uL (0.0-0.031); BASOPHILS # 0.03 x10^3/uL (0.01-0.08); EOSINOPHIL % 4.0 % (0.8-7.0); EOSINOPHILS # 0.29 x10^3/uL (0.04-0.54); MCHC 30.1 g/dl (32.3-36.5); MEAN CELL VOLUME 82.8 fl (79.0-92.2); MEAN PLT VOLUME 10.6 fl (9.4-12.4); MONOCYTE # 0.43 x10^3/uL (0.30-0.82); MONOCYTE % 5.9 % (5.3-12.2); RDW 14.2 % (12.0-15.6)
== END 2025-04-09 13:45 | disposition other institution (70) | DRG 773 ==
LOC: YASAS 22:33 → Y3N 04-06 02:15
PROVIDERS: ADMIT Allergy & Immunology; ATTEND Allergy & Immunology
PROC: HZ2ZZZZ Detoxification Services for Substance Abuse Treatment (ICD-10-PCS; principal; 2025-04-06)
DX: F13.230 Sedative, hypnotic or anxiolytic dependence with withdrawal, uncomplicated (principal); F11.20 Opioid dependence, uncomplicated; F14.20 Cocaine dependence, uncomplicated; F17.290 Nicotine dependence, other tobacco product, uncomplicated; F31.9 Bipolar disorder, unspecified; F20.9 Schizophrenia, unspecified; F43.10 Post-traumatic stress disorder, unspecified; G47.00 Insomnia, unspecified; Z87.828 Personal history of other (healed) physical injury and trauma
CPT/HCPCS: 36415; 80053; 80307; 85025; 85027; 86780; 93005; 93010